=== PATIENT | male | born 1985 | race Caucasian/White ===

== ENCOUNTER → 2020-04-28 14:18 | Outpatient (CLI) | payer BC, SELFPAY ==
--- NOTE | 2020-04-28 15:34 | DI.RAD.S_ITS ---
PROCEDURE: XR ELBOW LT MIN 3V INDICATIONS: left elbow pain TECHNIQUE: 3 views of the elbow were acquired. COMPARISON: None. FINDINGS: Bones: No acute fractures or dislocations. No suspicious bony lesions. Soft tissues: No elbow joint effusion. No suspicious soft tissue calcifications. IMPRESSION: No acute osseous abnormality. If the symptoms persist with conservative management, consider cross sectional imaging such as CT or MRI for further assessment. Dictated by: Tom Powell M.D. on 04/28/2020 at 15:49 Approved by: Tom Powell M.D. on 04/28/2020 at 15:50
== END ==
PROVIDERS: Referring Provider Physician Assistant; Visit Provider Physician Assistant
DX: M25.522 Pain in left elbow (principal)
CPT/HCPCS: 73080

== ENCOUNTER 2023-05-21 18:46 | Emergency (ER) | payer BC, SELFPAY ==
[2023-05-21] VITALS (7 sets, daily range): BP systolic 139–157; BP diastolic 86–90; PULSE 62–79; RESP 16–17; TEMP 36.6–36.9; O2SAT 97–98; BMI 27.6
[2023-05-21 19:20] LABS: Add Manual Diff / Slide Review NO; Basophils Absolute Auto 100 /uL (0-100); Basophils Percent Auto 0.7 % (0-2); Eosinophils Absolute Auto 200 /uL (0-450); Eosinophils Percent Auto 1.8 % (2-4); Hematocrit 44.4 % (41-53); Hemoglobin 15.6 g/dL (13.5-17.5); Lymphocytes Absolute Auto 2600 /uL (1100-4500); Lymphocytes Percent Auto 27.8 % (25-40); Mean Corpuscular HGB Conc 35.2 % (30-36); Mean Corpuscular Volume 85.2 fL (80-100); Monocytes Absolute Auto 600 /uL (0-900); Monocytes Percent Auto 6.2 % (3-14); Neutrophils Absolute Auto 5900 /uL (1500-7000); Neutrophils Percent Auto 63.5 % (50-75); Platelet Count 173 X10^3/uL (150-400); Red Blood Cell Count 5.21 X10^6/uL (4.5-5.9); Red Cell Distribution Width 13.2 % (11.6-14.8); White Blood Cell Count 9.3 X10^3/uL (4.5-11.0)
[2023-05-21 19:39] LABS: Alanine Aminotransferase 25 IU/L (<50); Albumin 4.3 g/dL (3.5-5.0); Albumin Globulin Ratio 1.4 (1.0-2.8); Alkaline Phosphatase 59 U/L (38-126); Aspartate Aminotransferase 30 IU/L (17-59); BUN Creatinine Ratio 12.6 (6-22); Bilirubin Total 0.5 mg/dL (0.2-1.3); Blood Urea Nitrogen 11 mg/dL (9-20); Calcium 9.6 mg/dL (8.4-10.2); Carbon Dioxide 28 mmol/L (22-32); Chloride 101 mmol/L (98-107); Estimated Glomerular Filt Rate > 60 mL/min (>60); Globulin 3.1 g/dL (1.7-4.1); Glucose 124 mg/dL (70-100); HEMOLYSIS < 15 (0-50); Lipase 63 U/L (23-300); Potassium 3.8 mmol/L (3.4-5.1); Sodium 137 mmol/L (137-145); Total Protein 7.4 g/dL (6.3-8.2)
--- NOTE | 2023-05-21 21:23 | ED.GENADULT ---
HPI - General Adult General Chief complaint: Abdominal Pain Stated complaint: abd pain Time Seen by Provider: 05/21/23 21:03 Source: patient Mode of arrival: Ambulatory History of Present Illness HPI narrative: 38-year-old otherwise healthy gentleman presents complaining of abdominal pain. He notes that his kids both have viral symptoms he is had a minor cough and slight hoarseness but no significant fevers or myalgias, vomiting or headache. He notes that for the last 48 hours he is had mild abdominal pain he describes it as central and just under his umbilicus. He had a single episode of nonbloody diarrhea yesterday and 2 normal stools today. He has no dysuria. Two nights ago the pain woke him up but he was able to get back to sleep and with distracting himself during the day was able to ignore it. By last night the pain woke him up around 3:00 a.m. and he was unable to get back to sleep. Pain has become increasingly intense any comes in for further evaluation. He was concerned that he may have been developing an ulcer so he has not taking any pain medications because he did not want to make any of his symptoms worse. Related Data Home Medications Medication Instructions Recorded Confirmed No Known Home Medications 04/28/20 05/21/23 Allergies Allergy/AdvReac Type Severity Reaction Status Date / Time No Known Drug Allergies Allergy Verified 05/21/23 19:04 Review of Systems Review of Systems Narrative: Pertinent positive and negative findings as per HPI Patient History Social History Smoking Status: Never smoker Smoking Status: Never smoker alcohol intake frequency: holidays/special occasions only Substance Use Type: does not use Exam Initial Vital Signs Initial Vital Signs: Vital Signs Temperature 98 F 05/21/23 19:02 Pulse Rate 79 05/21/23 19:02 Respiratory Rate 17 05/21/23 19:02 Blood Pressure 157/90 H 05/21/23 19:02 Pulse Oximetry 98 05/21/23 19:02 Oxygen Delivery Method Room Air 05/21/23 19:02 General: Healthy appearing, in no acute distress. Able to give a complete and coherent history. Well-nourished well-developed HEENT: Moist mucous membranes, normal sclera with reactive pupils, voice is mildly hoarse, no cervical adenopathy or pharyngeal erythema Respiratory: Lungs are clear to auscultation, no wheezing no rales no rhonchi. Full and symmetrical air movement Cardiac: Regular rate and rhythm no murmurs no bruits Abdomen: Soft, has some minimal tenderness just inferior to the umbilicus but no rebound or guarding. He has no tenderness at all in the right lower quadrant with deep palpation, no flank pain Skin: Warm and dry, no rashes Neurologic: Grossly neurologically intact with no obvious asymmetries or abnormalities Extremities: No trauma, well perfused Psych: Cooperative, appropriate insight and affect Course Orders Ordered: ED Orders 05/21/23 19:10 Complete Blood Count AUTO DIFF Stat Comprehensive Metabolic Panel Stat Lipase Stat Ondansetron HCl (Ondansetron 4 Mg Odt) 4 mg PO NOW PRN PRN Reason: Nausea And Vomiting Ondansetron HCl (Ondansetron 4 Mg/2 Ml Inj) 4 mg IV NOW PRN PRN Reason: Nausea And Vomiting Vital Signs Vital signs: Vital Signs - 8 hr 05/21/23 19:02 05/21/23 20:51 05/21/23 20:53 Temperature 98 F Pulse Rate 79 66 Respiratory Rate 17 Blood Pressure 157/90 H 139/88 Pulse Oximetry 98 98 Oxygen Delivery Method Room Air Room Air Medical Decision Making Lab Data 05/21/23 19:10 05/21/23 19:10 Labs: Lab Results 05/21/23 Range/Units 19:10 WBC 9.3 (4.5-11.0) X10^3/uL RBC 5.21 (4.5-5.9) X10^6/uL Hgb 15.6 (13.5-17.5) g/dL Hct 44.4 (41-53) % MCV 85.2 (80-100) fL MCH 30.0 (26-34) PG MCHC 35.2 (30-36) % RDW 13.2 (11.6-14.8) % Plt Count 173 (150-400) X10^3/uL Neut % (Auto) 63.5 (50-75) % Lymph % (Auto) 27.8 (25-40) % [place] % (Auto) 6.2 (3-14) % Eos % (Auto) 1.8 L (2-4) % Baso % (Auto) 0.7 (0-2) % Neut # (Auto) 5900 (9671-9822) /uL Lymph # (Auto) 2600 (5747-3673) /uL [place] # (Auto) 600 (0-900) /uL Eos # (Auto) 200 (0-450) /uL Baso # (Auto) 100 (0-100) /uL Sodium 137 (137-145) mmol/L Potassium 3.8 (3.4-5.1) mmol/L Chloride 101 (98-107) mmol/L Carbon Dioxide 28 (22-32) mmol/L BUN 11 (9-20) mg/dL Creatinine 0.87 (0.66-1.25) mg/dL Estimated GFR > 60 (>60) mL/min BUN/Creatinine Ratio 12.6 (6-22) Glucose 124 H (70-100) mg/dL Calcium 9.6 (8.4-10.2) mg/dL Total Bilirubin 0.5 (0.2-1.3) mg/dL AST 30 (17-59) IU/L ALT 25 (<50) IU/L Alkaline Phosphatase 59 (38-126) U/L Total Protein 7.4 (6.3-8.2) g/dL Albumin 4.3 (3.5-5.0) g/dL Globulin 3.1 (1.7-4.1) g/dL Albumin/Globulin Ratio 1.4 (1.0-2.8) Lipase 63 (23-300) U/L Urine Dip Bedside Urine Glucose Negative Bedside Urine Bilirubin - Negative Bedside Urine Ketone - Negative Urine Specific [place] 1.025 Bedside Urine Occult Blood - Negative Bedside Urine pH 6.0 Bedside Urine Protein - Negative Bedside Urine Urobilinogen - Negative Bedside Urine Nitrite - Negative Bedside Urine Leukocytes - Negative Esterase Point of care testing: Urine Dip Bedside Urine Glucose Negative Bedside Urine Bilirubin - Negative Bedside Urine Ketone - Negative Urine Specific [place] 1.025 Bedside Urine Occult Blood - Negative Bedside Urine pH 6.0 Bedside Urine Protein - Negative Bedside Urine Urobilinogen - Negative Bedside Urine Nitrite - Negative Bedside Urine Leukocytes - Negative Esterase MDM Narrative Medical decision making narrative: CC: 2 days of periumbilical pain, single episode of diarrhea Data collected from: patient, Differential considered: Appendicitis, bowel obstruction, constipation, viral syndrome Exam documented above, pertinent findings include: Otherwise healthy-appearing gentleman slightly hoarse minimal abdominal pain and certainly no evidence of an acute surgical abdomen Lab Test results independently reviewed as above. Pertinent findings: CBC is unremarkable with no leukocytosis Chemistries are reassuring with normal electrolytes, renal function. No elevated liver function studies Lipase is reassuring at 63 Imaging studies independently reviewed: With shared decision-making, we discussed the unremarkable lab workup and very benign physical exam and together decided to not proceed with CT scan today Treatments: IV Toradol Discussion: Otherwise healthy 38-year-old gentleman with viral syndrome and mid abdominal pain. He does not have any rebound or guarding he does not have any right lower quadrant tenderness. We did have a long discussion about appendicitis and how it can sometimes be difficult to identify. With completely normal labs and such a benign physical exam today I think the possibility of appendicitis is less likely but still remains within the differential. Patient understands this. He would prefer to try some pain medication such as ibuprofen and Tylenol as he has tried nothing yet and see how he does tonight. He is well aware that if the pain worsens, he develops fevers, any bloody diarrhea or new symptoms he needs to return and the next step in his workup would absolutely be to obtain a CT scan of the abdomen. He is safe for discharge home at this time Discharge Plan Departure Patient Disposition: Home Clinical Impression: Acute viral syndrome Abdominal pain Qualifiers: Abdominal location: periumbilical Qualified Code(s): R10.33 - Periumbilical pain Instructions: DI for Abdominal Pain-Adult Activity Restrictions/Additional Instructions: Thank you for coming in today Your blood workup was very reassuring. There was no evidence of overwhelming bacterial infection, electrolyte abnormalities or kidney function problems. Your physical exam aside from the hoarse voice was also quite reassuring. Your abdomen does not feel as tender as I would expect if you were to have appendicitis for the last 48 hours. Having said that, sometimes appendicitis can be a bit tricky. Together we decided to not do a CT scan of your belly but, if you are getting worse in any way, that would be the next appropriate step and I would strongly encourage you to return to the emergency department. Mild abdominal pain is fairly common with viral syndromes and that may well explain the symptoms are having. Using 400 mg of ibuprofen (2 [id number] pills) and 1 Tylenol every 6 hours can be very helpful in controlling pain. If you find that you are getting worse or develop any new symptoms, please feel free to return to the emergency department for further evaluation. Prescriptions: No Action No Known Home Medications Referrals: Miscellaneous,Doctor, MD [Primary Care Provider] - Stand Alone Forms: Patient Portal/API
[2023-05-21] MEDS: KETOROLAC 30 MG/ML VIAL 15 MG IV (21:44)
== END 2023-05-21 21:48 | disposition home or self-care (01) ==
PROVIDERS: Emergency Provider Emergency Medicine
DX: B34.9 Viral infection, unspecified (principal); R10.33 Periumbilical pain
CPT/HCPCS: 36415; 80053; 81003; 83690; 85025; 96374; 99284; J1885

== ENCOUNTER 2025-03-30 12:29 | Emergency (ER) | payer BC, SELFPAY ==
[2025-03-30 12:54] VITALS: BP 188/96; PULSE 86; RESP 20; TEMP 36.6; O2SAT 96; BMI 28.8
--- NOTE | 2025-03-30 12:59 | DI.RAD.S_ITS ---
PROCEDURE: XR HIP W PEL IF DONE RT 2V INDICATIONS: right hip and thigh pain x 5 days no trauma TECHNIQUE: AP pelvis with lateral view(s) of the right hip(s). COMPARISON: None. FINDINGS: Bones: No fractures or dislocations. Pelvic ring appears intact. No suspicious bony lesions. Soft tissues: The visualized bowel gas pattern is normal. No suspicious soft tissue calcifications. IMPRESSION: No visualized acute fracture or dislocation. However, if clinical concern and/or pain persist, short interval imaging followup in 7-10 days is recommended, as occult injury cannot be definitively excluded. Dictated by: Ana María Paul M.D. on 03/30/2025 at 13:22 Approved by: Ana María Paul M.D. on 03/30/2025 at 13:23
--- NOTE | 2025-03-30 14:37 | ED_ITS ---
<Statement entered by Roc Dickerson MD - 03/30/25 15:43> Case was discussed agree with plan HPI - Extremity Problem General Chief complaint: Extremity Problem,Nontraumatic Stated complaint: right thigh numb right hip pain Time Seen by Provider: 03/30/25 13:46 Source: patient Mode of arrival: Ambulatory History of Present Illness HPI Narrative: Mr. Snell is a pleasant 40-year-old gentleman, active [employer], denies any medical history who presents to the emergency department for right groin pain and right medial thigh numbness times 4-5 days. Patient denies any inciting injury, states that he 1st noticed it when standing up in the shower a few days ago. Since then he has progressively continued to have pain in the right inguinal area/groin folds with numbness extending down the anterior medial thigh stopping at the knee. The pain is intermittent but the numbness is constant. He does find that lying flat improves the pain. He has occasionally limping because of the pain. Denies any fevers, chills, swelling in the groin, dysuria. Related Data Previous Rx's ?Medication ?Instructions ?Recorded valacyclovir 1 gram tablet 1,000 mg PO TID 7 days #21 tabs 03/30/25 Allergies Allergy/AdvReac Type Severity Reaction Status Date / Time No Known Drug Allergies Allergy Verified 03/30/25 12:54 Review of Systems Review of Systems ROS Unobtainable: All systems reviewed & are unremarkable except as noted in HPI and below Patient History Social History Smoking Status: Former smoker Smoking Status: Former smoker alcohol intake frequency: holidays/special occasions only Exam Narrative Exam Narrative: GENERAL: 40 year old patient appears stated age. Well-developed patient, in no acute distress. HEAD: Atraumatic. Normocephalic. EYES: No scleral icterus. No injection or drainage. NECK: Trachea midline. Cervical ROM intact. CARDIOVASCULAR: Regular rate RESPIRATORY: ?Nonlabored respirations. ?Speaking in clear, full sentences. ? ? EXTREMITIES: Female nurse circle beveler present for right groin exam. Patient has no swelling or tenderness in the inguinal canal. On his right medial inner thigh he does have an erythematous, papular, blistering rash that is unilateral and confined to the L2 dermatome. 2+ bilateral DP and PT pulses, 5/5 bilateral plantar and dorsiflexion strength, knee flexion-extension strength, hip flexion- extension strength. NEURO: AOx3. ?Clear speech. ?Moves all 4 extremities appropriately. SKIN: Right inner thigh rash described above. Initial Vital Signs Initial Vital Signs: Vital Signs Temperature 97.9 F 03/30/25 12:54 Pulse Rate 86 03/30/25 12:54 Respiratory Rate 20 03/30/25 12:54 Blood Pressure 188/96 H 03/30/25 12:54 Pulse Oximetry 96 03/30/25 12:54 Oxygen Delivery Method Room Air 03/30/25 12:54 Course Orders Ordered: ED Orders 03/30/25 12:59 XR hip w pel RT 2V Stat Vital Signs Vital signs: Vital Signs - 8 hr 03/30/25 12:54 Temperature 97.9 F Pulse Rate 86 Respiratory Rate 20 Blood Pressure 188/96 H Pulse Oximetry 96 Oxygen Delivery Method Room Air MDM - Extremity (Nontraumatic) Medical Records Attestation: I reviewed the patient's medical records. MDM Narrative Medical decision making narrative: 40-year-old gentleman, active [employer], denies any medical history who presents to the emergency department for right groin pain and right medial thigh numbness times 4-5 days. Differential diagnosis includes but isn't limited to meralgia paresthetica, lumbar radiculopathy, herpes zoster, etc. On exam patient is in no acute distress, nontoxic appearing, vital signs appropriate except for elevated blood pressure. He is describing numbness in the distribution of the right medial femoral cutaneous nerve. Patient was placed into a gown, female nurse circle beveler present, physical exam revealed no tenderness swelling or abnormalities in the right inguinal canal however he does have herpes zoster rash on the right medial thigh which is likely explanation of his pain and numbness. He does have a history of chickenpox as a kid. Bilateral lower extremities are neurovascularly intact, he is ambulatory. We will treat with valacyclovir 1 g t.i.d. x7 days, discussed supportive care, follow up with PCP, return to ER for any new or worsening symptoms. Patient verbalized understanding of all information agreeable with the plan. He is ambulatory stable for discharge home. Discharge Plan Departure Patient Disposition: Home Clinical Impression: Thigh shingles, Herpes zoster Instructions: DI for Shingles Activity Restrictions/Additional Instructions: Dear Mr. Snell, Thank you for coming to the emergency department. Today you were evaluated for right groin pain and numbness. Your physical exam reveals a shingles rash. This is a viral infection and you have been prescribed an antiviral medication to take 3 times a day for the next week. Please be aware that this is contagious so it is important to keep the area covered, once all the lesions are crusted over it is no longer contagious. Please follow up with your primary care doctor, return to the emergency department for any new or worsening symptoms. Please follow up with your primary care doctor within the next 2-3 days for ER follow-up. (If you do not have a PCP you can call [phone]. ?to schedule an appointment with an [facility] Primary Care Provider) IF YOU DEVELOP ANY NEW OR WORSENING SYMPTOMS, RETURN TO THE ER! Please read the attached instructions, they highlight more specific treatments and interventions for you at home. Thank you for letting me participate in your care, China Tamayo PA-C Prescriptions: New valacyclovir 1 gram tablet 1,000 mg PO TID 7 Days Qty: 21 0RF Referrals: Miscellaneous,Doctor, MD [Primary Care Provider, Medical] Stand Alone Forms: Patient Portal/API, Work Release Note
[2025-03-30 15:58] VITALS: BP 154/95; PULSE 74; RESP 18; O2SAT 96
== END 2025-03-30 15:45 | disposition home or self-care (01) ==
PROVIDERS: Emergency Provider Physician Assistant
DX: B02.9 Zoster without complications (principal)
CPT/HCPCS: 73502; 99281; 99283